=== PATIENT | female | born 1945 | race Caucasian/White ===

== ENCOUNTER 2020-06-21 12:07 | Emergency (ER) | payer BC, OTHER ==
[~2020-06-21] VITALS: Ht 170.2 cm; Wt 72.6 kg
--- NOTE | ~2020-06-21 | EMS ---
[address] [address] EMS Patient Care Report Name: JOSEFINA JERONIMO Room #: REG CHRISTIANO Yousif#: [id number] Admission: 06/21/20 Attend Phys: Discharge: Date of : 41 Report #: [id number] THIS REPORT FOR: //name// Report Transmitted: 06/21/2020 13:24 EMS Care Summary [facility] MED-ACT Incident [id number] @ 06/21/2020 11:22 Incident Location [address] [place] [address] [address] [place] [address] Patient JOSEFINA JERONIMO Female, 74 Years 1945 Patient Address [address] [place] [address] [address] [place] [address] Patient History Diabetes,Hypertension (HTN),Hyperlipidemia, Patient Allergies Penicillin allergy,Sulfa, Patient Medications Metformin, Glyburide, Gabapentin, Acyclovir, Atorvastatin, Zolpidem, Lisinopril, Tramadol, Cymbalta, Chief Complaint Neck pain, dizziness, headache Disposition Transported No Lights/[place] Dispatch Reason Sick Person Transported To [facility] Narrative [id number] arrived on scene to find pt seated in a chair, in care of Q41. Pt [address] [address] EMS Patient Care Report Name: JOSEFINA JERONIMO Room #: LAURY Yousif#: [id number] Admission: 06/21/20 Attend Phys: Discharge: Date of : 43 Report #: [id number] appeared to be in no acute distress. Pt complains of sharp 10/10 neck pain that came on suddenly a couple days ago. Pt denies recent fall or trauma to that area. Pt also complains of "a little" headache and dizziness. Pt states she has not been taking her medications lately, but would not give a reason why. Pt is a difficult historian and refuses to answer some questions posed by EMS. VS, exam, ECG, bG checked- 305. Pt ambulated to cot, secured with seatbelts--> unit. Pt refused to wear a mask while in the unit, stating "I can't breathe." Pt rested comfortably on the cot during transport with no obvious signs of distress. No further complaints and VS monitored en route. Biocom to [place] with information only. Initial Vitals @11:57P: 89,BP: 140/87,SpO2: 100, @11:55P: 91,SpO2: 100, @PTAP: 97,R: 18,BP: 219/105,Pain: 10/10,GCS: 15,Glucose: 305,SpO2: 98,Revised Trauma: 12,[place] Suspected: false @11:44P: 93,BP: 171/119,Pain: 10/10,GCS: 15,SpO2: 100,[place] Suspected: false Assessments @11:40MENTAL:Person Oriented,Time Oriented,Place Oriented,Event Oriented,SKIN:HEENT:Head/Face: No Abnormalities,LUNG SOUNDS:General: No Abnormalities,ABDOMEN:General: No Abnormalities,PELVIS//GI:No Abnormalities,EXTREMITIES:Left Arm: No Abnormalities,Right Arm: No Abnormalities,Left Leg: No Abnormalities,Right Leg: No Abnormalities,PULSE:NEURO:No Abnormalities, Impression Pain (Non-Traumatic) 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,BP: 219/105 M,PULSE: 97,RR: 18 R,SPO2: 98 Ox,ETCO2: ,B,PAIN: 10,GCS: 15, 11:19,Call Received 11:19,Psap Call 11:22,Dispatched 11:23,En Route 11:27,On Scene 11:32,At Patient 11:43,Depart Scene 11:44,BP: 171/119 M,PULSE: 93,RR: R,SPO2: 100 Ox,ETCO2: ,BG: ,PAIN: 10,GCS: [address] [address] EMS Patient Care Report Name: JOSEFINA JERONIMO Room #: REG Rea.#: [id number] Admission: 06/21/20 Attend Phys: Discharge: Date of : 43 Report #: [id number] 15, 11:55,BP: / M,PULSE: 91,RR: R,SPO2: 100 Ox,ETCO2: ,BG: ,PAIN: ,GCS: , 11:57,BP: 140/87 M,PULSE: 89,RR: R,SPO2: 100 Ox,ETCO2: ,BG: ,PAIN: ,GCS: , 11:59,At Destination 12:20,Call Closed Disclaimer v1.1 Copyright 2020 [facility] This EMS Care Summary contains data elements from the applicable legal record (which may be displayed differently). It is designed to provide pertinent information for the following purposes: continuity of care, clinical quality, and state data reporting. The complete legal record is available to ED staff and administrators of the receiving hospital in [employer]'s Patient Tracker. All data is provided "as is."
[2020-06-21 13:21] LABS: BASOPHILS 0.9 % (0.0-2.0); EOSINOPHILS 0.7 % (0.0-3.0); HEMATOCRIT 44.5 % (37.0-47.0); HEMOGLOBIN 14.7 gm/dL (12.0-15.0); LYMPHOCYTES 17.4 % (24.0-44.0); MCH 27.7 pg (26.0-34.0); MCV 83.9 fL (80.0-100.0); MONOCYTES 7.3 % (1.0-8.0); PLATELET COUNT 371 thou/uL (150-400); POLYS 73.7 % (36.0-66.0); RDW 15.3 % (10.5-14.5); WBC 14.9 thou/uL (4.0-11.0)
[2020-06-21 13:35] LABS: URINE BILIRUBIN NEGATIVE (Negative); URINE BLOOD TRACE (Negative); URINE CLARITY CLEAR; URINE COLOR YELLOW; URINE GLUCOSE-RANDOM* 3+ (Negative); URINE KETONES NEGATIVE (Negative); URINE LEUKOCYTES-REFLEX TRACE (Negative); URINE NITRITE-REFLEX NEGATIVE (Negative); URINE PROTEIN (DIPSTICK) 3+ (Negative); URINE SPECIFIC GRAVITY 1.025 (1.005-1.035); URINE UROBILINOGEN 0.2 E.U./dl (0.2-1.0)
[2020-06-21 15:17] VITALS: BP 193/103
[2020-06-21 16:04] LABS: CASTS None Seen /LPF (None Seen); SQUAMOUS >10 Many /LPF (0-3)
[2020-06-21 16:05] LABS: BACTERIA-REFLEX 1-9 Few /HPF (None Seen); CRYSTALS None Seen /LPF (None Seen); URINE RBC 0-2 Rare /HPF (0-2); URINE WBC-REFLEX 0-5 Rare /HPF (0-5)
== END 2020-06-21 15:33 | disposition home or self-care (01) ==
LOC: ER 12:07
PROVIDERS: Physician Assistant
DX: D72.829 Elevated white blood cell count, unspecified (principal); E11.9 Type 2 diabetes mellitus without complications

== ENCOUNTER 2021-06-08 16:47 | Emergency (ER) | payer BC, OTHER ==
[~2021-06-08] VITALS: Ht 170.2 cm; Wt 72.6 kg
[2021-06-08 16:53] VITALS: BP 186/80
[2021-06-08] MEDS ORDERED: ASA81BEC PO (17:07)
[2021-06-08] MEDS ORDERED: ACETAMINOPHEN650 M1 PO (17:07)
[2021-06-08] MEDS ORDERED: LIPITOR 20 MG T20 M1 PO (17:07)
[2021-06-08] MEDS ORDERED: NORVASC 2.5 MG2.5 M1 PO (17:07)
[2021-06-08] MEDS ORDERED: SANTYL OINTMENT30 G1 TOP (17:08)
[2021-06-08] MEDS ORDERED: DULOXETINE HCL60 MG PO (17:08)
[2021-06-08] MEDS ORDERED: OPTIMAL D31250 MCG PO (17:08)
[2021-06-08] MEDS ORDERED: JARDIANCE10 MG PO (17:10)
[2021-06-08] MEDS ORDERED: IRON325 PO (17:10)
[2021-06-08] MEDS ORDERED: LANTUS SUBQ (17:11)
[2021-06-08] MEDS ORDERED: NOVOLOG100 UNIT/1 SUBQ (17:11)
[2021-06-08] MEDS ORDERED: HYDROCODON-ACE1 EAC7 PO (17:11)
[2021-06-08] MEDS ORDERED: HUMALOG100 UNIT/1 SUBQ (17:12)
[2021-06-09] MEDS ORDERED: NEURONTIN 300M300 M2 PO (03:54)
[2021-06-09] MEDS ORDERED: DULOXETINE HCL30 MG PO (03:54)
[2021-06-09] MEDS ORDERED: NOVOLIN 70100 UNIT/3 SUBQ (03:55)
[2021-06-09] MEDS ORDERED: JARDIANCE10 MG PO (03:56)
[2021-06-09] MEDS ORDERED: LATANOPROST 0.2.5 ML OPHTHALMIC (03:57)
[2021-06-09] MEDS ORDERED: METHOCARBAMOL500 M2 PO (03:58)
[2021-06-09] MEDS ORDERED: LIDODERM1 EACH TOP (03:58)
[2021-06-09] MEDS ORDERED: NORCO5 PO (03:59)
[2021-06-09] MEDS ORDERED: FLUDROCORTISON0.1 MG PO (03:59)
[2021-06-09] MEDS ORDERED: MELATONIN3 M2 PO (03:59)
[2021-06-09] MEDS ORDERED: TYLENOL325 MG PO (04:00)
== END 2021-06-08 18:13 ==
LOC: ER 16:47
DX: F91.8 Other conduct disorders (principal); E11.9 Type 2 diabetes mellitus without complications; F17.210 Nicotine dependence, cigarettes, uncomplicated; Z20.822 Contact with and (suspected) exposure to COVID-19; Z79.82 Long term (current) use of aspirin; Z79.4 Long term (current) use of insulin; Z79.899 Other long term (current) drug therapy; Z88.0 Allergy status to penicillin; Z88.2 Allergy status to sulfonamides

== ENCOUNTER 2021-06-08 17:27 | Inpatient (IN) | payer OTHER, BC ==
[~2021-06-08] VITALS: Ht 167.6 cm; Wt 74.4 kg
[~2021-06-08 17:27] MED LIST: ACETAMINOPHEN650 M1 PO; ASA81BEC PO; DULOXETINE HCL60 MG PO; HUMALOG100 UNIT/1 SUBQ; HYDROCODON-ACE1 EAC7 PO; IRON325 PO; JARDIANCE10 MG PO; LANTUS SUBQ; LIPITOR 20 MG T20 M1 PO; NORVASC 2.5 MG2.5 M1 PO; NOVOLOG100 UNIT/1 SUBQ; OPTIMAL D31250 MCG PO; SANTYL OINTMENT30 G1 TOP
[2021-06-08 19:05] VITALS: BP 137/77
--- NOTE | 2021-06-08 19:08 | NUR ---
75 yo female with hx of DM, COPD, MDD, anxiety, fibromyalgia, glaucoma, HTN, HLD, sleep apnea and degenerative arthritis admitted to [facility] with AMS and FTT. Consents obtained by Dr. Smith and Cara Velez from daughter who is DPOA and is currently in [place]. Allergies to PCN and Sulfa. Alert and orientated to person and place. Unable to give date. Breath sounds clear. Reg HR auscultated. Color pink with brisk capillary refill and palpable peripheral pulses. Incontinent of yellow urine per brief. Active bowel sounds over soft, rounded abdomen. Ambulates with slow, steady gait. R heel decubitus with scant amt sangiuous drainage around ulcer, photographed, cleaned with NS and optiform drsg placed.
[2021-06-09] MEDS ORDERED: DULOXETINE HCL30 MG PO (03:54)
[2021-06-09] MEDS ORDERED: NEURONTIN 300M300 M2 PO (03:54)
[2021-06-09] MEDS ORDERED: NOVOLIN 70100 UNIT/3 SUBQ (03:55)
[2021-06-09] MEDS ORDERED: JARDIANCE10 MG PO (03:56)
[2021-06-09] MEDS ORDERED: LATANOPROST 0.2.5 ML OPHTHALMIC (03:57)
[2021-06-09] MEDS ORDERED: METHOCARBAMOL500 M2 PO (03:58)
[2021-06-09] MEDS ORDERED: LIDODERM1 EACH TOP (03:58)
[2021-06-09] MEDS ORDERED: NORCO5 PO (03:59)
[2021-06-09] MEDS ORDERED: MELATONIN3 M2 PO (03:59)
[2021-06-09] MEDS ORDERED: FLUDROCORTISON0.1 MG PO (03:59)
[2021-06-09] MEDS ORDERED: TYLENOL325 MG PO (04:00)
[2021-06-09 08:42] LABS: HEMATOCRIT 41.9 % (37.0-47.0); HEMOGLOBIN 13.5 gm/dL (12.0-15.0); MCH 27.1 pg (26.0-34.0); MCHC 32.3 g/dL (28.0-37.0); MCV 84.1 fL (80.0-100.0); RBC 4.99 mil/uL (4.20-5.00); RDW 15.2 % (10.5-14.5); WBC 14.3 thou/uL (4.0-11.0)
[2021-06-09 08:59] LABS: CREATININE 1.9 mg/dL (0.6-1.0); POTASSIUM 3.7 mmol/L (3.5-5.1)
[2021-06-09 09:04] LABS: CHOLESTEROL 358 mg/dL (<200); HDL CHOLESTEROL 62 mg/dL (>40); LDL CHOLESTEROL 240 mg/dL (<100); TC:HDL 5.8 Ratio (Not establshd); TRIGLYCERIDE 280 mg/dL (<150); VLDL 56 mg/dL (<40)
--- NOTE | 2021-06-09 10:30 | NUR ---
Nutrition: Seen due to new admission SBU. Dx self care failure, unspecified psychosis. Pt sleeping soundly at time of visit. No weight hx to assess. Nsg reports pt tolerated breakfast well this am. BG 74-465. On Carb controlled diet with hx DM, HTN, HLD. On SSI, glargine, linagliptin, vitamin D, ferrous sulfate. BMI 26 WNL. Will follow po trends for any needed interventions but place as low risk for now.
[2021-06-09 11:23] VITALS: BP 139/82
[2021-06-09 11:24] VITALS: BP 159/77
--- NOTE | 2021-06-09 16:02 | NUR ---
ASSUMED PATIENT CARE 0700. PATIENT WAS SLEEPING IN BED IN ROOM 519A, GOT UP FOR BREAKAST, SHE WAS CALM AND COOPERATIVE, ALERT AND ORIENTED X3 ASSESSMENT COMPLETEED, ACTIVE BOWEL SOUND, LUNGS CLEAR, B/P WAS HIGH THIS MORNING 174/73,100.18,96.0,99 02 YONY, IT WAS RECHECKED AFTER ONE HOUR 159/77, 97.18,98 02 YONY. SHE TOOK HER MEDICATION WHOLE. AMBULATE WITH OUT DEVICE, STEADY GAIT. PATIENT WENT BACK TO SLEEP AFTER ASSESSMENT AND REFUSED TO GET UP FOR LUNCH, SHE DENIES SI/HI. WILL CONTINUE TO MONITOR PATIENT
[2021-06-09 17:58] LABS: BASOPHILS 0.6 % (0.0-2.0); EOSINOPHILS 1.5 % (0.0-3.0); HEMATOCRIT 38.8 % (37.0-47.0); HEMOGLOBIN 12.7 gm/dL (12.0-15.0); LYMPHOCYTES 27.3 % (24.0-44.0); MCH 27.5 pg (26.0-34.0); MCHC 32.8 g/dL (28.0-37.0); MCV 83.8 fL (80.0-100.0); MONOCYTES 10.5 % (1.0-8.0); PLATELET COUNT 312 thou/uL (150-400); POLYS 60.1 % (36.0-66.0); RBC 4.62 mil/uL (4.20-5.00); RDW 15.4 % (10.5-14.5); WBC 11.6 thou/uL (4.0-11.0)
[2021-06-09 18:06] LABS: CALCIUM 8.8 mg/dL (8.5-10.1); CREATININE 1.7 mg/dL (0.6-1.0)
--- NOTE | 2021-06-09 18:22 | NUR ---
@1100 ARAM, Tequila Hoang RN attempted to contact the Pt's DPOA, Rafa, by phone. We were able to speak with Rafa however she was having a diffucult time hearing the conversation. ARAM set up a zoom meeting for 1300. [address] Navarro were able to participate in a zoom call with Rafa. Dr. Navarro explained the assessments and treatment for Pt's on this unit. Also the risk of antipsychotics. Rafa was able to give some background information on the Pt and complete the psychosocial assessment with the SW. Pt was born and raised in [place]. Only has one adult daughter Rafa. 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 Pt has surgery on her back in April 2021. Since that time Pt has had 4 falls. Pt does have a bus steward but no other in home assistance. Pt did have meals on wheel however does not like chicken so she stopped the service. Pt is unable to cook her own meals but is able to use a microwave. Pt lives on her own, has no family in the country, however has 2 close friends who do assist her. A follow up meeting for 06/15/2021 @ 1pm was scheduled. This will be via zoom. Welcome information was emailed to Rafa at [email or web address] ARAM will continue to follow
[2021-06-09 19:18] VITALS: BP 121/54
[2021-06-09 19:50] VITALS: BP 121/54
[2021-06-10 00:06] LABS: GLYCOHEMOGLOBIN (HGB A1C) 10.7 % (4.8-5.6)
--- NOTE | 2021-06-10 03:14 | NUR ---
PATIENT CARE WAS RESUMED AT 1900. SHE WAS IN THE DINING AREA WITH IV NORMAL SALINE INFUSING. SHE IS ALERT AND ORIENTED. ABLE TO VERBALIZE HER NEEDS. SHE IS CONTINET OF BOWEL AND BLADDER. DENIES PAINS /SI/AVH/HI. SHE TOOK HER MEDS WHOLE. BOWEL SOUND ARE CLEAR ABD IS SOFT NONE TENDER.SHE HAS A YELLOW TOP AND NONE SKID SOCK ON. BED IS LOW, LOCKED . CONTINUE CARE AND MONITOR Q12 MINUTES PER PROTOCOL.
[2021-06-10 06:48] LABS: HEMATOCRIT 37.9 % (37.0-47.0); HEMOGLOBIN 12.1 gm/dL (12.0-15.0); MCH 27.2 pg (26.0-34.0); MCHC 31.9 g/dL (28.0-37.0); MCV 85.3 fL (80.0-100.0); RBC 4.45 mil/uL (4.20-5.00); RDW 15.5 % (10.5-14.5); WBC 12.2 thou/uL (4.0-11.0)
[2021-06-10 07:11] LABS: CREATININE 1.8 mg/dL (0.6-1.0); POTASSIUM 3.4 mmol/L (3.5-5.1)
[2021-06-10 09:43] VITALS: BP 120/54
--- NOTE | 2021-06-10 12:15 | NUR ---
PATIENT CARE ASSUMED BY 0700, SHE WAS IN BED SLEEPING, GOT UP TO THE DAY ROOM FOR BREAKAST, ALERT AND ORIENTED X4, CALM AND VERY SLEEPY DURING ASSESSMENT, LUNGS CLEAR, ACTIVE BOWEL SOUND, VSS, SHE SLEPT MOST OF THE DAY IN THE DAY ROOM ON THE TAYLA CHAIR, SHE IS CONTINENT OF BOWEL AND BLADDER, AMBULATE WITH WALKER WITH UNSTAEDY GAIT. PATIENT DENIES SI/HI/AVH, WILL CONTINUE TO MONITOR
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
[2021-06-10 20:32] VITALS: BP 141/58
--- NOTE | 2021-06-11 03:24 | NUR ---
06/10/21 - pt is alert/pleasant with some confusion, hat placed in bathroom but unable to use urine because it got contaminated with stool. Pt uses walker when she remembers it. She is unsteady on her feet but will allow you to assist her when needed. This nurse assisted her with combing her hair. She got up without assistance at approx 215 am but went back to bed. Denies SI/HI/AH/VH. will continue to monitor.
[2021-06-11 09:30] LABS: URINE BILIRUBIN NEGATIVE (Negative); URINE BLOOD NEGATIVE (Negative); URINE CLARITY CLEAR; URINE COLOR YELLOW; URINE GLUCOSE-RANDOM* NEGATIVE (Negative); URINE KETONES NEGATIVE (Negative); URINE NITRITE-REFLEX NEGATIVE (Negative); URINE PROTEIN (DIPSTICK) 1+ (Negative); URINE SPECIFIC GRAVITY <= 1.005 (1.005-1.035); URINE UROBILINOGEN 0.2 E.U./dl (0.2-1.0)
[2021-06-11 09:31] LABS: URINE LEUKOCYTES-REFLEX 1+ (Negative)
[2021-06-11 09:46] LABS: CASTS None Seen /LPF (None Seen); SQUAMOUS 4-10 Moderate /LPF (0-3)
[2021-06-11 09:47] LABS: BACTERIA-REFLEX 1-9 Few /HPF (None Seen); CRYSTALS None Seen /LPF (None Seen); URINE RBC None Seen /HPF (NONE SEEN); URINE WBC-REFLEX 0-5 Rare /HPF (0-5)
[2021-06-11 10:21] VITALS: BP 152/73
--- NOTE | 2021-06-11 14:42 | NUR ---
ASSUMED CARE OF PATIENT 06/11/21 AT 0700, PATIENT WAS STILL IN BED SLEEPING, CAME OUT FOR BREAKFAST, CALM AND COPERATIVE, ALERT AND ORIENTED X3, TOOK MEDICATION WHOLE, ASSESSMENT COMPLETED, ACTIVE BOWEL SOUND, LUNGS CLEAR, SHE ATTENDED GROUP BUT COULD NOT STAY AWAKE AND WAS SENT BACK TO HER ROOM TO SLEEP, DAUGHTER CALLED FOR UPDATE. BLOOD PRESSURE 152/73,66,16,96.8,98. TYLENOL PRN WAS GIVEN FOR BACK PAIN, PATIENT DENIES SI/HI/AVH, WILL CONTINUE TO MONITOR HER
[2021-06-11 18:01] VITALS: BP 179/72
--- NOTE | 2021-06-11 18:46 | NUR ---
17:50 I HARD A SCREAM COMING FROM A ROOM I WAS WALKING ANOTHER PATIENT TO THE BATHROOM, OTHER STAFF WENT TO THE ROOM AND FOUND THE PATIENT ON THE BATHROOM FLOOR. PATIENT STATED SHE FELL TRYING TO USE THE BATHROOM VITAL/SIGNS 179/72,100,18,96.2 AND 02 98%. BRIAN POWELL SHANNON WAS NOTIFIED,CT SCAN WAS DONE, CARE PLAN WAS UPDATED
[2021-06-11 19:20] VITALS: BP 132/42
[2021-06-11 20:10] VITALS: BP 132/42
--- NOTE | 2021-06-12 04:08 | NUR ---
PATIENT CARE WAS RESUMED AT 1900. SHE IS ALERT AND WAS RESTING IN HER BED. SHE AMBULATES WITH WALKER AND AND SHE IS CONTINET OF BOWEL AND BLADDER. ABLE TO VERBALIZE HER NEEDS. LUNGS ARE CLEAR BS ACTIVE X4 QUADS. SHE TOOK HER MEDS WHOLE AND SHE DENIES PAINS/SI/AVH/HI. SHE CONTINUES IS ON FALL PROTOCOL. BED IS LOW,ALARMED AND LOCKED.NURSE PROVIDED HER WITH SOME SNACKS PER HER REQUEST. SHE IS A MODERATE ASSIST WITH TRANSFER. Q 12MINUTES CHECK ONGOING CONTINUE CARE.
[2021-06-12 09:45] VITALS: BP 159/75
--- NOTE | 2021-06-12 12:27 | NUR ---
Assumed pt care at 0700. Pt was in room awake. Alert and oriented to person and place. Calm and cooperative with care. Denies si/hi, c/o pain. Tylenol administered as ordered. No sign of acute distress noted upon assessments. Took meds whole, no difficulty noted. Ambulates with a walker. At this time pt is in her room resting. Will continue to monitor.
--- NOTE | 2021-06-12 17:25 | NUR ---
ARAM sent a request to Olga Francis for a medicaid screening.
[2021-06-12 19:50] VITALS: BP 137/61
[2021-06-12 20:09] VITALS: BP 137/61
[2021-06-12 22:06] LABS: SYPHILIS AB Non Reactive (Non Reactive)
--- NOTE | 2021-06-13 05:34 | NUR ---
PATIENT CARE WAS RESUMED AT 1900. SHE IS ALERT AND ORIENTED WITH SOME CONFUSSION AND FORGETFULNESS.LUNGS ARE CLEAR BS ACTIVE X4 QUADS. SHE IS CONTINIET OF BOWEL AND BLADDER. AMBULATES WITH WHEEL CHAIR. DENIES PAINS/SI/AVH/HI. SHE TOOK HER MEDS WHOLE. BED IS LOW, LOCKED AND ALARMED. YELLOW TOP AND NONE SKID SOCKS ON. [id number] CHECK ONGOING.CONTINUE CARE AND MONITOR.
[2021-06-13 06:05] LABS: HEMATOCRIT 37.4 % (37.0-47.0); HEMOGLOBIN 12.1 gm/dL (12.0-15.0); MCH 27.5 pg (26.0-34.0); MCHC 32.4 g/dL (28.0-37.0); MCV 84.9 fL (80.0-100.0); RBC 4.4 mil/uL (4.20-5.00); RDW 15.2 % (10.5-14.5); WBC 9.1 thou/uL (4.0-11.0)
[2021-06-13 06:20] LABS: CALCIUM 8.1 mg/dL (8.5-10.1); CREATININE 1.6 mg/dL (0.6-1.0); POTASSIUM 4.2 mmol/L (3.5-5.1)
[2021-06-13 09:26] VITALS: BP 166/76
--- NOTE | 2021-06-13 10:10 | NUR ---
Followup: remains on SBH. Eating 90-100% meals, wt up 4 lb, BMI 26.5. Carb controlled diet, BG 93-176. Remains low nutrition risk
--- NOTE | 2021-06-13 15:44 | NUR ---
Assumed pt care at 0700. pt was in her room sleeping. Alert and oriented to person and place. Assessments completed,vss. Denies si/hi, scheduled medication administered as ordered. Took meds whole, no difficulty noted. Ambulates with a WALKER. pt heel wound was assessed. Dr Vigil was notified. cALM AND COOPERATIVE WITH CARE. Pt daughter called for update over the phone. Will continue to monitor pt.
[2021-06-13 20:00] VITALS: BP 146/116
[2021-06-13 21:00] VITALS: BP 146/116
[2021-06-13 21:20] VITALS: BP 146/116
[2021-06-14 03:52] VITALS: BP 146/116
--- NOTE | 2021-06-14 04:47 | NUR ---
PATIENT CARE WAS RESUMED AT 1900. SHE IS ALERT AD ORIENTED X3. SHE AMBULTES WITH WALKER. DENIES PAINS/SI/AVH/HI. SHE TOOK HER PILLS WHOLE. YELLOW TOP AND SOCK ON. BED IS LOW, LOCKED AND ALARMED. NO BEHAVIUR NOTED THIS SHIFT, BED IS LOW, LOCKED AND ALARMED. SHE SLEPT VERY GOOD THIS SHIFT.
[2021-06-14 10:30] VITALS: BP 145/50
[2021-06-14 19:28] VITALS: BP 159/76
--- NOTE | 2021-06-15 07:31 | NUR ---
PATIENT HAS BEEN IN ROOM ALL NIGHT. WHEN ASKED SHE DENIES SI/HI/AVH. SHE DID STATE THAT THE NEUROCOGNITIVE TESTS SHE HAD DONE YESTERDAY DID NOT SHOW GOOD RESULTS AND THIS HAS MADE HER SAD. SHE FEELS AT A LOSS ON WHAT IS GOING TO HAPPEN NEXT WITH HER CARE. SHE WAS CALM BUT COOPERATIVE. A/0X3-4. SHE WAS UP WITH WALKER AND STANDBY ASSIST X 1 TO THE RESTROOM. SHE TOOK HER MEDS WHOLE WITH WATER. SHE TAKES TYLENOL SCHEDULED FOR CHRONIC PAIN IN RIGHT HIP WHERE PLATE IS IN PLACE FROM A PAST HIP FRACTURE. PATIENT SLEPT MOST OF NIGHT. BED IN LOW POSITION AND BED ALARM IS ON. ROUTINE ROUNDS TO ASSESS SAFETY AND STATUS OF PATIENT.
--- NOTE | 2021-06-15 10:49 | NUR ---
RT Progress Note- Yaneth has been a limited participant in recreation therapy groups and milieu. Yaneth is found in her room during unscheduled programming, and most often declines group attendance. She is sharp in tone and directly states that she is, "not like those people" when refusing to participate. She has not displayed any violence. TOOL KEEPER will continue to encourage patient participation in the milieu and recreation therapy groups.
[2021-06-15 11:03] VITALS: BP 149/64
--- NOTE | 2021-06-15 14:57 | NUR ---
Alert and orientated. States she wants to stay in bed but then ambulated to dining room with slow, steady gait to dining room for breakfast. Did not mention pain until scheduled tylenol given. Then refused to go to group and stated to PT that she did not want PT d/t hip pain. Discussed with Dr. Smith, hip xray done per order. Partial relief with scheduled tylenol. Breath sounds clear. Reg HR auscultated. Color pink with brisk capillary refill and palpable peripheral pulses. Active bowel sounds over soft, rounded abdomen. States she had BM yesterday. Currently sleeping in room. States she was happy to speak with daughter over phone.
--- NOTE | 2021-06-15 17:10 | NUR ---
ARAM and Dr. Navarro participated in a family meeting with the Pt and DPOA, Helena. Nueropsy evalation was discussed and diagnosis. Dr. Navarro gave recommendation for 24 hr superviosn/LTC. ARAM informed Helena that [facility] was trying to contact her concerning the medicaid application. Helena confirmed she had recieved an email from Rima Francis concerning the matter. The Pt and Helena expressed concern about the diagnosis. The Pt expressed understanding of being at the hospital until a placement can be secured. SW will continue to follow
[2021-06-15 20:04] VITALS: BP 145/56
--- NOTE | 2021-06-16 04:23 | NUR ---
PATIENT CARE ASSUMED AT APPROX 1900. PATIENT A&OX3, REPORTED 7/10 HIP PAIN. GIVEN SCHEDULED TYLENOL PER ORDERS. PATIENT C/O "THE OTHER PAITIENTS ARE CUCKOO" AND "ALL THE NORMAL PEOPLE DISSAPPEARED AND EVERYONE THAT IS HERE NOW IS CRAZY. I HAVE SOMETHING TO FEAR FROM EVERY OTHER PATIENT HERE". AT THE TIME THE PATIENT STATED THIS, THERE WERE 2 OTHER PATIENTS YELLING AND SCREAMING VERY LOUDLY, WHICH FRIGHTENED HER. PATIENT CLEARLY UNCOMFORTABLE AROUND HER PEERS. WHEN A NEW ADMIT CAME WHO WAS ALSO VERY DISRUPTIVE, THE PATIENT WAS MOVED TO ANOTHER ROOM SHE APPEARED EXASPERATED AND UNABLE TO SLEEP WITH THE COMMOTION. PATIENT HAS REMAINED IN BED RESTING QUIETLY SINCE THE ROOM CHANGE.
[2021-06-16 09:25] VITALS: BP 173/94
--- NOTE | 2021-06-16 16:16 | NUR ---
Alert and orientated X 4, denies SI/HI. Frustrated with being on behavioral unit. Does not mention hip pain until offered scheduled tylenol. States it is better but rates it a 5. Ambulates with walker with regular, steady gait. Breath sounds clear. Reg HR auscultated. Color pink with brisk capillary refill and palpable periphearal pulses. Ulcer on R heel healing, cleaned with NS and painted with betadine. Independent with voiding. States last BM was 2 days ago. Currently sleeping in room.
--- NOTE | 2021-06-16 17:09 | NUR ---
ARAM recieved and email from Helena stating " I have spoke with my mom and she refused to go into a retirement. I need to speak with Dr. Smith urgently" ARAM did respond back to the email and provided Dr. Jarrett's cell phone number in that email. ARAM and Dr. jarrett were able to have a phone conversation with Edwin concerning the matter. Helena was concerned about being the decision maker stating " I don't want to have to make the decision about my mother going to a retirement". Dr. Jarrett informed Helena if she was unwilling to exercise her decision making rodriguez through the power of district attorney a guardianship would need to be pursued. Also explained the pros and cons of an appointed guardian. The recommedation for retirement placement was discussed and it was strongly encouraged that this route be pursued due to the high risk of Pt being unsafe if returned home without the proper supports. Helena confirmed the Pt did not have any friends or family that could provide 24hr supervision in the home. Helena stated she would not be able to make it to the [place] for another 2 months if COVID restrictions allow. Helena was able to verbilize an understanding for a need for a retirement placement at this time. Helena had no other questions or concerns ARAM will continue to follow.
--- NOTE | 2021-06-16 17:30 | NUR ---
ARAM and Dr. Weston were able to speak with Kristina Cardenas, [facility] supervisor case loading. The Pt was also in the office for this call. Kristina inquired about Pt's diagnosis and the plan for discharge. Dr. isaacs educated about the diagnosis and treatment plan. ARAM was able to answer questions concerning placement and medicaid. Kristina stated they would be unable to assist with any cost associated with a placement. However they could assist with packing up the Pt's home and storage. Kristina had to end the phone call due to another meeting. After the call ARAM and Dr. Weston talked to the Pt about her behaviors with staff. Pt showed an understanding that the behavior was not okay and not tolerated. ARAM will continue to follow.
[2021-06-16 19:38] VITALS: BP 150/72
--- NOTE | 2021-06-16 22:26 | NUR ---
RESUMED CARE AT 1900. PATIENT LYING IN BED. COMPLIANT WITH MED PASS. HS ACCUCHECK 199, ADMIN 3 UNITS OF SS INSULIN. LATER WHEN PATIENT GOT UP TO GO TO THE BATHROOM, NOTED THE WOUND ON RIGHT HEEL WAS BLEEDING. CLEANED WITH NS, APPLIED BETADINE, DRESSED WITH NONADHERENT DRESSING AND WRAPPED LIGHTLY WITH GAUZE. DENIES ANY PAIN IN HEEL. C/O RIGHT HIP PAIN 4/10, GIVEN SCHEDULED TYLENOL. PATIENT A&OX3, PLEASANT AND EXPRESSES THANKS FOR ASSISTING HER. Q12 MINUTE SAFETY CHECKS.
[2021-06-17 09:12] VITALS: BP 169/79
--- NOTE | 2021-06-17 14:02 | NUR ---
Alert and orientated to person and place but not to time. Upset d/t having to be watched when she toilets. Agreeable to putting on yellow shirt and socks, blue pants for fall precautions. Denies SI/HI. 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 Calm and cooperative. Breath sounds clear. Reg HR auscultated. Color pink with brisk capillary refill and palpable peripheral pulses with minimal edema in lower extremitites. Pain 5/10 per R hip, improved to 4/5 with lidocaine patch and tylenol. Ambulates with regular gait with walker. Independent with voiding. Active bowel sounds over soft, rounded abdomen, reports BM 3 days ago, refuses laxative this AM stating she wants to wait one more day. Ulcer on R heel with small amt red drainage, cleaned with NS and betadine applied. Wound covered with foam dsg d/t drainage.
[2021-06-17 16:30] VITALS: BP 126/67
[2021-06-17 19:50] VITALS: BP 109/55
--- NOTE | 2021-06-17 22:06 | NUR ---
RESUMED PATIENT CARE THIS EVENING. PATIENT LYING IN BED SINCE START OF SHIFT. WEARING YELLOW SHIRT, BLUE PANTS, AND YELLOW NONSLIP SOCKS. BED ALARM ON. A&OX 3. C/O RIGHT HIP PAIN 5/10. GIVEN SCHEDULED TYLENOL. PATIENT STATES SHE IS SAD, BECAUSE SHE HASN'T SPOKEN TO HER DAUGHTER IN 3 DAYS. PATIENT FEELS SHE DOES NOT HAVE ANY CONTROL OF HER LIFE. DEPRESSED MOOD, DOWNCAST EYES. PATIENT COMPLIANT WITH MEDICATIONS. HS ACCUCHECK 227, GIVEN 4 UNITS OF SLIDING SCALE. PATIENT CONTINUES ON FALL PRECAUTIONS AND Q12 MINUTE SAFETY CHECKS.
[2021-06-18 09:29] VITALS: BP 188/96
--- NOTE | 2021-06-18 12:12 | NUR ---
LABILE MOOD NOTED THIS SHIFT. ON INITIAL ASSESSMENT THIS AM SITTING IN DAYROOM WITH FEMALE PEERDEMANDING A NEW BREAKFAST BE ORDERED BECAUSE SHE DID NOT LIKE THE EGGS AND MUFFIN/FRESH FRUIT PROVIDED-ANGRY FACIALEXPRESSION,RAISED VOICE-"YOU HAD BETTER GET ME WHAT I ORDERED OR SOMEONE IS GOING TO HEAR ABOUT IT"REFUSED TO ATTEND AM RT GROUP WAS IN ROOM ON PHONE WITH DAUGHTER AT START OF ACTIVITY. JOSE DAVID INFORMED OF GROUP TIMES BY NURSING STAFF BUT BOTH PT/SAJI INSIST ON CONTINUING PHONE CONVERSATION D/T DAUGHTER LIVING IN [facility] AND CAN ONLY CALL Q 3-4 DAYS. AFTERSPEAKING WITH DAUGHTER ON PHONE WAS LOUDLY TEARFYL IN ROOM STATING"YOUR DOCTOR HERE HAS RUINED MY RELATIONSHIP WITH MY DAUGHTER AND I NEED TO TALK WITH HIM RIGHT NOW" DID TAKE MEDICATIONS AND INSULIN WITHOUT RESISTANCE-ALTHOUGH SHE STATES MEDICINES "ARE NOT WORKING-I FEEL WORSE THAN EVER"GAIT SLOW AND STEADY WITH USE OF ROLLER WALKER-ENCOURAGED MULTIPLE TIMES TO ALLOW STAFF TO ASSIST WITH TOILETING AND AMBULATING HOWEVER CONTINUES TO GET UP ON OWN STATING SHE DOESN'T WANT TO WAIT UNTIL NURSE IS DONE FEEDING A PT IN DAYROOM. DENIES C/O PAIN. VS STABLE. BS ACTIVE X4. AFEBRILOE-APPETITE FAIR.REMAINS ON FALLS PRECAUTIONS D/T RECENT FALL
--- NOTE | 2021-06-18 17:00 | NUR ---
SW witnessed pt. aggressively pushing a pt's legs down. The pt. had been reclined in the chair. The pt. was taken out of the day room.
--- NOTE | 2021-06-18 17:09 | NUR ---
ARGUMENTATIVE AND OPPOSITIONAL WITH STAFF. REFUSES TO ATTEND ACTIVITIES-MAKING COMMENTS LOUDLY IN DAYROOM TO FEMALE PEER THAT STAFF ARE "STUPID" "CAN'T GET ANYTHING RIGHT" AND TELLING PEERS AND STAFF COMING ONTO UNIT FROM OTHER DEPARTMENTS THAT STAFF WERE "NOT GIVING ME ANY FOOD OR HELP ALL DAY"-INACTUALITY REFUSED FOOD BROUGHT ON LUNCH TRAY-SPECIAL MENU ITEM PREPARED IN DIETERY AND BROUGHT TO FLOOR AND SHE REFUSES THIS CALLING IT "GARBAGE"INSISTED ON HAVING A SHOWER TODAY DESPITE FACT SHOWER DAYS ARE SCHEDULED AND STAFF WOULD HAVE TO POSTPONE ANOTHER PATIENTS SHOWER WHO HAD NOT HAD ONE RECENTLY SHE HAS TO WHICH SHE STATES "I DON'T CARE" AT [address] BY KIRSTIN BEGAN TO YELL LOUDLY AT THIS NURSE THAT A HAD PUT ANOTHER PT IN HER CHAIR-WHEN EXPLAINED WE DON;T HAVE ASSIGNED SEATS AT MEALTIME WALKED OVER TO FEMALE PT SITTING IN CHAIR WHO WAS OFFERING TO MOVE AND SHOUTED AT HER LOUDLY "SHUT UP-" APPROX 5 MINUTES LATER GOT UP FROM DINING ROOM TABLE WALKED OVER TO PT SITTING IN "HER CHAIR" PUSHED DOWN FIRMLY ON LEG REST CAUSING RECLINER TO SNAP INTO UPRIGHT SITTING POSITION ALMOST KNOCKING FEMALE PEER OUT OF CHAIR TO GROUND. THIS INCIDENT WITNESSED BY RT STAFF WHO IMMEDIATLY ESCORTED PT TO ROOM -DR BYRD ON UNIT -SAW PT AT APPROX 1730-ORDER RECEIVED FOR ZYDIS 5MGPO NOW.
[2021-06-18 19:36] VITALS: BP 166/77
[2021-06-18 20:40] VITALS: BP 166/77
--- NOTE | 2021-06-19 00:46 | NUR ---
PATIENT HAS BEEN IN HER ROOM MOST OF EVENING. SHE DID VISIT WITH SOME OTHER FEMALE PATIENTS AT THE BEGINNING OF THE SHIFT AND THEN WAS ASSISTED TO HER BEDROOM TO USE THE RESTROOM. PATIENT HAS BEEN IRRITABLE WHEN SHE WAS AWAKENED FOR HS MEDS. SHE REFUSED HER PILLS BUT DID ALLOW EYEDROPS AND INSULINS TO BE GIVEN. HER HS GLUCOSE WAS 316 BUT SHE DID REFUSE INSULIN AT SUPPER THIS EVENING WHEN GLUCOSE WAS IN THE 200'S. PATIENT LATER DECLINED HER GABAPENTIN AND WAS VERY IRRITABLE. PATIENT CONTINUES TO BE A FALL RISK. SHE DENIES SI/HI/AVH. SHE DENIES PAIN. BED IN LOW POSITION AND BED ALARM IS ON. PT AMBULATES FROM BED TO BATHROOM WITH WALKER AND ASSIST X 1. SHE IS A/0X2-3 AND CONFUSED AT TIMES. ROUTINE ROUNDS TO ASSESS SAFETY AND STATUS OF PATIENT.
[2021-06-19 09:48] VITALS: BP 172/70
--- NOTE | 2021-06-19 14:24 | NUR ---
Patient care resumed at 0700, patient still in bed sleeping, she is alert and oriented x3, calm, pleasant during assessment, got her up for breakfast, VVS, blood sugar 189, 4 units of insulin given, 229 for lunch, 4 units given, active bowel sound, lungs clear, patient calm and cooperative but always sleeping in room, she was ordered room locked out for groups and meals, she attends groups and paticipated, she denies si/hi
--- NOTE | 2021-06-19 14:57 | NUR ---
Referrals sent to the following: [facility]
[2021-06-19 20:40] VITALS: BP 110/50
--- NOTE | 2021-06-20 02:54 | NUR ---
PATIENT STAYED IN ROOM THIS EVENING. SHE WAS VERY IRRITABLE AND HATEFUL AND REFUSED HER TYLENOL AND GABAPENTIN INITIALLY BUT WAS ABLE TO GIVE IT TO HER LATER. HER BLOOD SUGAR WAS 231 AND LISPRO 4 U WERE GIVEN SQ. PT ALSO HAD LANTUS 30 U SCHEDULED. PATIENT DID HAVE A BM TONIGHT. SHE DID HAVE HS SNACK LATER IN EVENING AND APOLOGIZED FOR BEING IRRITABLE. SHE IS UP WITH WALKER. SHE IS A HIGH FALL RISK. DENIES SI/HI/AVH. A/0X 2-3. PATIENT IS ANGRY ABOUT BEING HERE AND WANTING TO GO HOME. PATIENT IS RESTING AT THIS TIME. BED IN LOW POSITION AND BED ALARM IS ON. ROUTINE ROUNDS TO ASSESS SAFETY AND STATUS OF PATIENT.
--- NOTE | 2021-06-20 08:29 | NUR ---
Nutrition follow up: Remains on [facility] unit. Intakes >75% avg across all meals. No recent weight. Vitamin D supplementation in place. A1c 10.7 on admit, BG range 134-316. On [facility] diet with DM meds in place. Remains low nutrition risk.
[2021-06-20 09:55] VITALS: BP 150/59
--- NOTE | 2021-06-20 12:12 | NUR ---
PATIENT CARE RESUMED AT 0700, SHE WAS SITTING IN DAY ROOM CALM AND COOPERATIVE, ALERT AND ORIENTED X3, SHE ATE BREAKFAST, VSS, LUNGS CLEAR, ACTIVE BOWEL SOUND 6 UNITS OF INSULIN WAS GIVEN FOR LUNCH, WOUND CARE DID A DRESSING CHANGE ON HER RIGHT HEEL AND RECOMMENDED DAILY AND PRN DRESSING. SHE IS A FALL RISK AND AMBULATE WITH A WALKER. PATIENT IS ON ROOM LOCK OUT FOR GROUPS AND MEALS. SHE DENIES HI/SI/AVH
[2021-06-20 19:44] VITALS: BP 137/47
[2021-06-20 20:00] VITALS: BP 137/47
--- NOTE | 2021-06-21 04:44 | NUR ---
PATIENT CARE WAS RESUMED AT 1900. SHE IS ALERT AND ORIENTED.SHE WAS IN HER ROOM RESTING IN BED. ABLE TO VERBALISE NEED. SHE DENIES ANY DISCOMFORT. LUNGS ARE CLEAR BS ACTIVE X4 QUAD. SHE IS CONTINENT OF BOWEL AND BLADDER. WHE TOO HER MED WHOLE AND SHE IS A HIGH FALL RISK. SHE AMBULATES WITH WALKER. BED IS LOW, LOCKED,AND ALARMED. SHE DENIES ANY CONCERN.Q 12MINUTES CHECK ONGOING. CONTINUE CARE AND MONITOR
[2021-06-21 08:51] VITALS: BP 158/73
--- NOTE | 2021-06-21 10:55 | NUR ---
PATIENT HAS BEEN UP, AND OUT ON THE UNIT, AMBULATE WITH SLOW UNSTEADY GAIT WITH ASSIST OF ROLLER WALKER. PATIENT TOOK ALL MEDICATION WHOLE WITHOUT DIFFICULTY, SHE IS EATING MEALS, AND DRINKING FLUID WELL. PATIENT DENIES SUICIDAL/HOMICIDAL IDEATION, SHE DENIES DEPRESSION, RATES ANXIETY 3/10, RATES RIGHT HIP PAIN 4/10, GETS SCHEDULE MEDICATION FOR PAIN. PATIENT CHOOSE NOT TO LET THIS RN APPLY LIDODERM PATCH TO HIP, "I DON'T NEED IT". AFFECT IS EUTHYMIC, MOOD CALM. NO AGITATION OR IRRITABLE BEHAVIOR NOTED AT THIS TIME. PATIENT IS ON ROOM LOCK OUT, SHE IS CURRNETLY SITTING IN DAYROOM. PATIENT PARITICIPATES IN GROUP THERAPY. PATIENT HAD LARGE FROMED BOWEL MOVEMENT THIS MORNING. NO SIGN OF ACUTE DISTRESS NOTED AT THIS TIME, WILL MONITOR FOR SAFETY.
[2021-06-21 19:20] VITALS: BP 156/68
--- NOTE | 2021-06-21 22:02 | NUR ---
PATIENT IS AAOX3 SITTING IN CHAIR IN THE MAIN AREA. PT STATES THAT SHE HAS BEEN HERE FOR 2 WEEKS AND IS READY TO GO HOME TO HER DAUGHTER. SHE STATES THAT SHE DOES NOT BELONG HERE SHE IS INTELLIGENT AND NOT LIKE THE OTHER PATIENTS HERE. SHE IS CALM AND COOPERATIVE. COMPLIANT WITH HER MEDICATIONS. DRESSING TO LEFT FOOT WOUND IS CDI. DENIES ANY PAIN AT THIS TIME. SHE REQUESTS TO KEEP HER DOOR CLOSED WHILE SLEEPING DUE TO HER FEAR OF OTHER PATIENTS ROAMING THE SEGOVIA. VITAL SIGNS STABLE.
[2021-06-22 07:59] VITALS: BP 156/68
--- NOTE | 2021-06-22 09:06 | NUR ---
0906 ASSUMED CARE OF PT FROM OVERNIGHT NURSE. PT SITTING IN DINING ROOM DURING ASSESSMENT. PT GET BLOOD SUGAR TAKEN ACHS. PT LUNGS CLEAR. PT ABDOMEN SOFT, BOWEL SOUND PRESENT. PT HAS ANKLE WOUND W DAILY DRESSING CHANGE. PT ALERT TIMES 3. PT MED COMPLIANT. PT DENIES PAIN AT TIME OF ASSESSMENT. PT DENIES SI/HI/AH/VH. WILL CONT TO MONITOR PT FOR BEHAVIORS AND SAFETY.
[2021-06-22 09:32] VITALS: BP 171/64
--- NOTE | 2021-06-22 13:42 | NUR ---
RT Progress Note- Yaneth has been present in recreation therapy groups this review period as she has been on a room lockout during group time. Yaneth continues to challenge this despite encouragement from psychiatrist. She is quick to become irritable if she does not like what is being discussed. WEB APPLICATION DEVELOPER has followed up with pt 1;1 who continues to state, "these people here are cuckoo" or "I am already depressed, I don't want to talk about it all the time" and is not open to discussing alternative leisure on unit. WEB APPLICATION DEVELOPER will continue to enforce room lockout during groups and encourage pt to be open to disucssions.
--- NOTE | 2021-06-22 19:04 | NUR ---
ARAM spoke with Katina, admissions at [facility]. Katina requested updated notes on the Pt before giving any answer for admission. ARAM did fax the requested information. ARAM has not yet heard back from Katina on the matter. ARAM will continue to follow.
[2021-06-22 19:33] VITALS: BP 123/49
--- NOTE | 2021-06-23 02:06 | NUR ---
PATIENT WITHDRAWN AND ISOLATING IN HER ROOM. STATES THAT SHE WANTS TO STAY IN HER ROOM. REQUESTS TO KEEP THE DOOR CLOSED. PATIENT STATED THAT SHE FEELS FINE BUT DID NOT WANT TO BE AROUND THE OTHER PATIENTS. SHE DENIES SI/HI. VSS. SHE IS COMPLIANT WITH MEDICATION. DENIES OTHER PAIN AND NEEDS. WILL CONTINUE TO MONITOR PATIENT FOR ANY CHANGE IN STATUS.
[2021-06-23 09:21] VITALS: BP 152/86
--- NOTE | 2021-06-23 14:06 | NUR ---
Alert and orientated X4. States stomach hurts 6/10, aching and burning. Also had R hip pain 3/10. Refuses medication for stomach and when ate breakfast states it is gone. Scheduled Tylenol given for hip pain and lidocaine patch applied. Denies SI/HI. Breath sounds clear. Reg HR auscultated. Color pink with brisk capillary refill and palpable peripheral pulses. Independent with voiding. States last BM was 3 days ago but refuses laxative. Active bowel sounds over soft, rounded abdomen. Ambulates with walker with slow, steady gait. Circular healing ulcer to R heel, cleaned with NS and betadine applied. Resistant to attending groups, isolates in room after group. Ate minimal amts for lunch, ordered additional fruit per pt request.
--- NOTE | 2021-06-23 17:38 | NUR ---
1030 ARAM spoke with Carole Gore, health administrator at [facility]. ARAM told they can accept the Pt. Carole needed to speak with Jose Eduardo concerning admission. Aram informed Carole of the time diffrence and the best way to contact would be though email. ARAM offered to contact Jose Eduardo and provide Carole's information. @[phone] ARAM emailed Jose Eduardo concerning the matter. ARAM also asked Dr. Navarro to call Jose Eduardo. Dr. Navarro came to the ARAM office where Jose Eduardo was called from Dr. Navarro's cell phone. Jose Eduardo was informed she needed to contact Carole at [facility] concernine the matter. Jose Eduardo was again given Carole's contact information. @[phone] ARAM contacted Carole again concerning the matter. Carole stated she had recieved a call or message from Jose Eduardo. @[phone] ARAM sent another email to Jose Eduardo and cc'ed Carole on the email requesting Jose Eduardo make contact concerning admission. ARAM will continue to follow
[2021-06-23 19:39] VITALS: BP 146/68
--- NOTE | 2021-06-24 04:40 | NUR ---
PATIENT AAOX4 RESTING IN THE ACTIVITY ROOM. SHE IS MORE BRIGHT TONIGHT THAN THE PREVIOUS NIGHT. SHE HAS HER SNACK AND TAKES HER MEDICATIONS WHILE IN THE COMMON AREA. SHE DENIES PAIN AT THIS TIME. WOUND IN CLEAN AND CONOR. VSS. NO DISTRESS NOTED. BLOOD SUGAR THIS EVENING WAS 289. PATIENT IS CALM AND COOPERATIVE. WILL CONTINUE TO MONITOR FOR CHANGE IN PATIENT STATUS.
[2021-06-24 09:34] VITALS: BP 152/71
--- NOTE | 2021-06-24 11:38 | NUR ---
DYSPHORIC MOOD THIS AM. ABRUPT VERBAL RESPONSES -SOME SOCIAL INTERACTION WITH FEMALE PEER -COMPLAINTIVE RE UNIT RULES AND FOOD, STAFF,SCHEDULE ETC.. DID TAKE AM MEDICATIONS WITHOUT RESITANCE. GOOD APPETITE-EATING 100 PERCENT OF MEAL AND OFTEN TIMES ASKS FOR MORE. DESCRIBES MOOD "BAD-REAL BAD" BUT UNABLE TO IDENTIFY ANY SPECIFIC DEPRESSIVE SYMPTOMS OR RATE DEPRESSION LEVEL ON 1-10 SCALE. WHEN ASKED TURNS AWAY ABRUPTLY STATING "I DON'T KNOW THATS STUPID" DENIES SI/SH. ORIENTED TO PERSON/PLACE -NO TO DATE.
[2021-06-24 20:00] VITALS: BP 181/74
[2021-06-24 20:14] VITALS: BP 181/74
--- NOTE | 2021-06-25 00:10 | NUR ---
PATIENT CARE WAS RESUMED AT 1900. SHE IS ALERT AND ORIENTED. SHE AMBULATES WITH WALKER. SHE DENIES ANY DISCOMFORT /S/ AVH/ HI. SHE IS CONTINENT OF BOWEL AND BLADDER. SHE IS CALM. SHE TOOK HER MED WHOLE AMBULATES WITH WALKER. BED IS LOW, LOCKED AND ALARMED.
[2021-06-25 09:13] VITALS: BP 147/79
--- NOTE | 2021-06-25 12:44 | NUR ---
NOTED DURING AM NURSING ASSESMENT TO HAVE ELEVATED PULSE AT 120-LAST -UPON REVIEW OF RECENT VS NOTED TO HAVE AN INCREASING PULSE SINCE ADMIT PARTICULARILY ON 8,12 13 AND 14. APICAL PULSE CHECKEDAND IS IRREGULAR WITH A RATE OF 108. PT DENIES CHEST PAIN/DISCOMFORT,SHORTNESS OF BREATH DOES REPORT FEELING "REALLY WEAK" WITH DIFFICULTY WALKING AND GETTING FROM SITTING TO STANDING. EASILY FATIGUED PER PT REPORT. DR BERRY NOTIFIED OF ABOVE DURING ROUNDS AND "O" RECEIVED FOR EKG WHICH WAS COMPLETED AT 1200-DR JENSEN PAGED WITH RESULTS-AWAITING RETURN CALL. REMAINS ON FALLS PRECAUTIONS,GAIT UNSTEADY, DYSPHORIC MOOD. DID HAVE SHOWER-APPETITE GOOD-REPORTS ANXIETY R/T DC AND NOT KNOWING WHAR WILL HAPPEN TO HER AND HER BELONGINGS ON DC. IS MORE COOPERATIVE WITH STAFF
[2021-06-25 14:20] LABS: URINE BILIRUBIN NEGATIVE (Negative); URINE BLOOD 1+ (Negative); URINE CLARITY CLEAR; URINE COLOR YELLOW; URINE GLUCOSE-RANDOM* 3+ (Negative); URINE KETONES NEGATIVE (Negative); URINE LEUKOCYTES 2+ (Negative); URINE NITRITE NEGATIVE (Negative); URINE PROTEIN (DIPSTICK) 2+ (Negative); URINE UROBILINOGEN 0.2 E.U./dl (0.2-1.0)
[2021-06-25 14:28] LABS: CASTS None Seen /LPF (None Seen); SQUAMOUS 0-3 Few /LPF (0-3)
[2021-06-25 14:29] LABS: BACTERIA 1-9 Few /HPF (None Seen); CRYSTALS None Seen /LPF (None Seen); URINE RBC 1-2 Rare /HPF (NONE SEEN); URINE WBC 6-15 Few /HPF (NONE SEEN); WBC CLUMPS Few (None Seen)
[2021-06-25 19:15] VITALS: BP 142/55
--- NOTE | 2021-06-26 03:54 | NUR ---
06-25-21 CARE TRANSFERRED 1899. LATER PT AAOX2, VSS, RR EVEN AND NONLABORED ON RA. PT DENIES PAIN AND SI/HI. PT BLD GLUCOSE 138. PT PRESENTS CALM AND COOPERATIVE. DURING MEDICATION ADMIN PT REPORTED HAVING PAIN EVERYWHERE AND SCORED 6 ON 0-10 SCALE. LATER UPON REASSESSMENT PT WAS RESTING IN BED WITH EYES CLOSED, PT BED IN LOWEST POSITION, LOCKED AND ALARM ON. PT WILL CONTINUE TO BE MONITOR PER [facility] PROTOCOL.
--- NOTE | 2021-06-26 07:27 | EKG ---
[address] [address] ELECTROCARDIOGRAM REPORT Name: JOSEFINA JERONIMO Room #: 52-A [facility] [place] .R.#: [id number] Admission: 06/08/21 Attend Phys: Corey Smith DO Discharge: Date of : 41 Report #: [id number] [facility] Test Date: 2021-06-25 Test Time: 11:27:11 Pat Name: JOSEFINA JERONIMO Department: Room: [facility] Gender: F Ciaio Counter Molder: RONNIE : 1945 Requested By: Cameron Matthews Order Number: [id number] MD: Sami López Measurements Intervals [place] Rate: 98 P: 61 [place]: 127 QRS: 71 QRSD: 135 T: -19 QT: 415 QTc: 530 Interpretive Statements Sinus rhythm Right bundle branch block No previous ECG available for comparison Electronically Signed On 06-26-2021 7:27:12 CDT by Sami López [email or web address] <ELECTRONICALLY SIGNED> By: Sami López MD, [facility] 06/26/21 0727 1127 [id number] Sami López MD, FACC /EPI
[2021-06-26 09:36] VITALS: BP 158/78
--- NOTE | 2021-06-26 10:33 | NUR ---
@10:33[facility] contacted Carole Mukund at [facility] ([phone]) for placement of pt. Carole stated the pt's DPOA, Helena, did attempt to contact her. She is currently waiting on a return phone call from Helena. Once she receives the call, Carole will contact the to move forward.
--- NOTE | 2021-06-26 19:27 | NUR ---
COOPERATIVE AND PLEASANT THROUGHOUT SHIFT-SAD FACIAL EXPRESSION.CONSTRICED AFFECT BUT WILL BRIGHTEN WHEN SPEAKING 1;1 WITH NURSING STAFF. REPORTS ANXIETY R/T DC. APPETITE GOOD. TAKING PO FLUIDS WELL. GAIT SLOW BUT STEADY WITH USE OF ROLLER WALKER
[2021-06-26 20:19] VITALS: BP 159/68
--- NOTE | 2021-06-27 06:14 | NUR ---
06-27-21 CARE TRANSFERRED 1899. LATER PT AAOX2, VSS, RR EVEN AND NONLABORED ON RA, PT DENIES PAIN AND SI/HI. PT PRESENTS CALM AND COOPERATIVE. DURING MEDICATION ADMIN PT HAD NO DIFFICULTIES. PT WILL CONTINUE TO BE MONITOR PER [facility] PROTOCOL.
--- NOTE | 2021-06-27 08:43 | NUR ---
Followup: eating 100% most meals of carb controlled diet. BG in poor control and on glargine, ss insulin, linagliptin. Has unstagable pressure ulcer to right heel, stable with eschar. Wound care continues to follow. Provider has indicated moderate protien calorie malnutrition: RD will defer. Will add catalina as extra supplementation. Low nutrition risk
[2021-06-27 09:35] VITALS: BP 176/84
[2021-06-27 09:44] VITALS: BP 176/84
--- NOTE | 2021-06-27 11:00 | NUR ---
1100 RESUMMED CARE FROM OVERNIGHT SHIFT THIS AM, PATIENT IN DAY ROOM SITTING QUIET. PATIENT ALERT ORIENTED TIMES 4 PATIENT DENIES SI/HI/AH/VH AT PRESENT. PATIENT CALM COOPERATIVE PARTICIPATES IN GROUPS, PATIENTS ABDOMEN SOFT BOWEL SOUNDS PRESENT. PATIENTS LUNGS CLEAR PATIENT MAY LEAVE TOMMOROW IF PLACEMENT GOES THROUGH. WILL CONTINUE TO MONITOR PATIENT FOR SAFETY AND BEHAVIORS.
--- NOTE | 2021-06-27 13:07 | NUR ---
@ 1030 ARAM called [facility] and spoke with Carole. Carole informed Helena had not reached out concerning the needed paper work. Carole informed she emailed the paperwork to Helena on 06/26/2021. Carole stated she is unable to admit the Pt without the signed paperwork. @1114 ARAM emailed Helena concerning the matter. ARAM informed that Carole had not recieved the paperwork for admission. ARAM encouraged Helena to reach out with any questions concerning the matter. @1256 Helena responded via email. In the email Helena states she printed out the documents and had some concerns. Helena stated she would not be able to send the documents back to Carole until Saturday. Helena requested a meeting with ARAM, Carole and Kristina Paula. @0273 ARAM responded informing SW will be out of office starting 06/28/2021. ARAM referred Helena to Cara Velez (providing Cara's phone number and email address). ARAM encouraged Helena to contact Carole directly with specific questions about [facility] and the contract. ARAM team will follow up.
[2021-06-27 19:23] VITALS: BP 120/55
[2021-06-27 20:20] VITALS: BP 120/55
--- NOTE | 2021-06-28 02:14 | NUR ---
PATIENT HAS BEEN IN ROOM ALL NIGHT RESTING IN BED. SHE DENIES PAIN. NO LIDODERM PATCH ON TO REMOVE D/T SHE REFUSED PATCH THIS MORNING. PATIENT DENIES SI/HI/AVH. SHE IS A/0X2-3. SHE HAS BEEN CALM AND COOPERATIVE TONIGHT AND VERY POLITE. SHE TOOK HER MEDS WHOLE WITHOUT INCIDENT. ACCUCHECK WAS 205 AT HS AND LISPRO 10U SQ GIVEN ALONG WITH HER LANTUS 40 UNITS SQ. PATIENT IS A STANDBY WHEN UP TO THE BATHROOM D/T HIGH FALL RISK. SHE FORGETS TO USE HER WALKER IN ROOM AT TIMES. NO COMPLAINTS. BED IN LOW POSITION AND BED ALARM IS ON. ROUTINE ROUNDS TO ASSESS SAFETY AND STATUS OF PATIENT.
--- NOTE | 2021-06-28 02:56 | NUR ---
PATIENT UPSET AND CAME TO NURSES STATION. SHE CANNOT SLEEP BECAUSE SHE IS AFRAID MALE PATIENT WILL REENTER HER ROOM HE DID EARLIER. SHE WAS MAD BECAUSE WE KEEP HER ROOM DOOR OPEN. EXPLAINED TO PATIENT THAT WE ARE TO KEEP ROOM DOORS OPEN SO WE CAN MAKE SURE EVERYONE IS OK AND WE CHECK ON THEM EVERY 11 MINUTES. SHE STATES SHE'S TOO SCARED TO SLEEP WITH DOOR OPEN D/T PATIENT WANDERING INTO HER ROOM AGAIN. PT ALSO REQUESTED COFFEE TO DRINK AND I TOLD HER THAT COULD NOT HAVE COFFEE TILL 0630 BUT I WOULD BE HAPPY TO GET HER SOME WATER. SHE REQUESTED ICE IN IT. PATIENT SAT IN A RECLINER IN DINING ROOM TO DRINK WATER. I NOTICED SHE DID NOT HAVE YELLOW SOCKS ON HER FEET BUT THEY WERE HANGING OVER HER WALKER. I SAID, YOUR FEET MUST BE COLD. SHE STATED THAT HER SOCKS WERE DIRTY AND SHE NEEDED NEW ONES. GOT PATIENT NEW SOCKS AND PUT THEM ON HER. PATIENT STILL NOT WANTING TO GO BACK TO BED D/T SCARED OF WANDERING PT. TOLD PATIENT THAT WHEN SHE GOES BACK TO HER ROOM TO SLEEP I WILL ALLOW THE DOOR TO BE CLOSED BUT THAT IT WILL BE OPENED EVERY 11 MINUTES SO WE CAN CHECK ON HER. PT OK WITH THIS AND THEN COMPLAINED THAT SHE CAN'T HAVE COFFEE NOW. PATIENT UP IN DINING ROOM WALKING WITHOUT WALKER.
[2021-06-28 09:29] VITALS: BP 172/66
[2021-06-28 14:14] LABS: CALCIUM 8.8 mg/dL (8.5-10.1); CREATININE 1.9 mg/dL (0.6-1.0)
--- NOTE | 2021-06-28 14:33 | NUR ---
PATIENT WAS UP, SITTING ON GERICHAIR IN DAYROOM WHEN CARE ASSUMED. PATIENT IS ALERT, AND ORIENTED X 3-4 ABLE TO VOICE NEED. PATIENT CAN BE FORGETFUL AT TIMES. PATIENT TOOK ALL MEDICATION WHOLE WITHOUT DIFFICULTY, SHE IS EATING MEALS, AND DRINKING FLUID WELL. PATIENT WANTED EYE DROP THAT IS SCHEDULED FOR 2100 AT 0900 HOURS. PATIENT NOTIFIED THAT SHE GOT THE MED LAST NIGHT ACCORDING TO THE MAR, AND SHE BECAME VERY ANGRY, AND IRRITABLE, YELLING AT THIS NURSE, CALLING ME NAMES. PATIENT REDIRECTED, AND NOTIFIED THAT VERBALLY ABUSING STAFF IS INAPPROPRIATE, AND NOT ACCEPTABLE. PATIENT DENIES SUICIDAL/HOMICIDAL IDEATION, FOR DEPRESSION, SHE STATES "I DON'T THINK I AM DEPRESSED", DENIES ANXIETY, SHE ALSO DENIES HAVING PHYSICAL PAIN, HAS DECLINED SCHEDULE TYLENOL X 2. PATIENT CAN BE EASILY AGGITATED, IRRITABLE, LOUD. SHE PARTICIPATES IN GROUP THERAPY. NO S&S OF HYPO/HYPERGLYCEMIA NOTED, INSULIN GIVEN PER SLIDIDNG SCALE ORDER. NO SIGN OF ACUTE DISTRESS NOTED AT THIS TIME, WILL CONTINUE TO REDIRECT, AND MONITOR FOR SAFETY.
--- NOTE | 2021-06-28 15:56 | NUR ---
Daughter had zoom meeting with Kristina from [facility] and Lolis from [facility]. All questions were answered and patient will discharge to [facility] on Saturday of this week. All parties had no other questions of us. Plan is to discharge patient Saturday to [facility].
--- NOTE | 2021-06-28 17:13 | HC ---
[facility] [place] [address] CONSULTATION Name: JOSEFIAN JERONIMO Room #: 526A-A ADM IN M.R.#: [id number] Admission: 06/08/21 Attend Phys: Corey Smith DO Discharge: Date of : 41 Report #: [id number] THIS REPORT FOR: cc: Jourdan Pulido MD, Neal A. MD Althoff,Jorden Dumont MD ~ DATE OF SERVICE: 06/13/2021 CHIEF COMPLAINT: Right heel ulceration. HISTORY OF PRESENT ILLNESS: This is a 75-year-old female patient whom I have seen during recent hospitalization at [facility]. She is admitted to the geriatric psychiatric unit for unspecified psychosis. She has a known right heel ulcer and some gluteal ulceration. I have been asked to see her with regard to wound care. The patient is awake. She does answer brief questions. She is somewhat unaware of her current circumstances. Denies any pain at this time. PAST MEDICAL HISTORY: Positive for history of type 2 diabetes mellitus, pressure ulcer to the right heel and dementia. MEDICATIONS: Include insulin, gabapentin, Jardiance, latanoprost, methocarbamol, Lidoderm patch, melatonin, fludrocortisone, [place], amlodipine, cholecalciferol, duloxetine, ferrous sulfate. ALLERGIES: PENICILLIN AND SULFA. FAMILY HISTORY: Unknown. REVIEW OF SYSTEMS: Not obtainable due to the patient's level of cooperation and alertness. PHYSICAL EXAMINATION: VITAL SIGNS: Include temperature 35.9, pulse 86, respiration of 16, blood pressure 166/76. GENERAL: This is a chronically ill-appearing female patient who has minimal distress. HEENT: Normocephalic. Nose and throat are clear. NECK: Supple. LUNGS: Diminished. HEART: Regular rhythm. ABDOMEN: Soft. EXTREMITIES: Examination of the lower extremities demonstrates an unstageable pressure ulcer of the right heel with dry stable eschar. It is not infected. Her pannus appears to be clear, buttocks appear to be clear at this time. [facility] [address] [place] [address] CONSULTATION Name: JOSEFINA JERONIMO Room #: 526A-A ADM IN M.R.#: [id number] Admission: 06/08/21 Attend Phys: Corey Smith DO Discharge: Date of : 41 Report #: [id number] CLINICAL IMPRESSION: 1. Unstageable pressure ulcer of the right heel. 2. Dementia with aggressive behaviors. 3. Type 2 diabetes mellitus. 4. Multiple falls and general debility. RECOMMENDATIONS: We will recommend topical Betadine paint to the right heel and otherwise be open to air, PRAFO boots when she is in bed or sitting in a chair and not ambulatory. Continue with medical management, nutritional support. I appreciate being asked to see her in consultation. <ELECTRONICALLY SIGNED> By: Jorden Mcintosh MD 06/28/21 1713 [id number] Jorden Mcintosh MD /shira
[2021-06-28 19:44] VITALS: BP 156/69
[2021-06-28 20:15] VITALS: BP 156/69
--- NOTE | 2021-06-29 02:09 | NUR ---
PATIENT HAS BEEN IN ROOM MOST OF NIGHT. SHE DID COME OUT TO DINING ROOM TO WATCH TV AND HAVE HS SNACK. HER BLOOD SUGAR WAS 273 TONIGHT AND SHE WAS GIVEN LISPRO 12U ALONG WITH HER LANTUS 40U SQ. PATIENT HAS BEEN POLITE, PLEASANT AND COOPERATIVE. SHE IS LOOKING FORWARD TO BEING DISCHARGED TODAY. PATIENT DENIES SI/HI/AVH. SHE IS A/0X4. SHE TOOK HER MEDS WHOLE WITH WATER. SHE DENIES PAIN. ROUTINE ROUNDS TO ASSESS SAFETY AND STATUS OF PATIENT.
[2021-06-29 09:24] VITALS: BP 154/61
--- NOTE | 2021-06-29 14:26 | NUR ---
RT Progress Note- Yaneth's presence in the milieu and recreation therapy has improved as has her compliance with room lockout. She initially engages in groups until other patients begin to frustrate her. She has very little tolerance for the cognition of other patient's on the unit. She appears to respond better to one to one engagement and enjoys conversations of intelligence. RT Team will continue to work with Yaneth until discharge.
[2021-06-29 15:15] VITALS: BP 141/62
--- NOTE | 2021-06-29 15:48 | NUR ---
Patient will discharge tomorrow at 11:00 to [facility]. Her apt. is all set up with the help of [facility]. [facility] will pick patient up. Conf# with [facility] is [id number]. Left message with Lolis Gore at [facility] about transport details.
--- NOTE | 2021-06-29 16:42 | NUR ---
Alert and orientated x 2-3. Denies SI/HI. Concerned about pending discharge to facility. Does not want to attend group, making negative comments toward group and peers in AM group. Refused to go to afternoon group stating that she wants to lay down d/t stomach discomfort after stating she did not have any pain and laughing with staff just prior to group. Continues to make negative comments about group. Breath sounds clear. Reg HR auscultated. Color pink with brisk capillary refill and palpable peripheral pulses. Independent with voiding. Active bowel sounds over soft, rounded abdomen. States she had BM 2 days ago. Ambulates with regular, steady gait with walker. Ulcer per R heel cleaned with NS and betadine applied.
[2021-06-29 19:49] VITALS: BP 163/73
[2021-06-29 19:50] VITALS: BP 163/73
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
[2021-06-30 09:16] VITALS: BP 141/70
[2021-06-30] MEDS ORDERED: LEVOFLOXACIN250 MG PO (09:38)
[2021-06-30] MEDS ORDERED: IRON325 PO (09:38)
[2021-06-30] MEDS ORDERED: LIPITOR40 MG PO (09:40)
[2021-06-30] MEDS ORDERED: NORVASC10 MG PO (09:40)
[2021-06-30] MEDS ORDERED: ADULT LOW DOSE81 MG PO (09:41)
[2021-06-30] MEDS ORDERED: NEURONTIN 300M300 M2 PO (09:42)
[2021-06-30] MEDS ORDERED: TYLENOL325 MG PO (09:42)
[2021-06-30] MEDS ORDERED: LEXAPRO 10 MG T10 MG PO (09:43)
[2021-06-30] MEDS ORDERED: NAMENDA 5 MG TAB5 M1 PO (09:43)
[2021-06-30] MEDS ORDERED: XALATAN2.5 ML OPHTHALMIC (09:44)
[2021-06-30] MEDS ORDERED: TRADJENTA5 MG PO (09:45)
[2021-06-30] MEDS ORDERED: LANTUS100 UNIT/M SUBQ (09:46)
[2021-06-30] MEDS ORDERED: VITAMIN D3125 MC1 PO (09:47)
--- NOTE | 2021-06-30 12:27 | NUR ---
Patient successfully discharged to [facility] via [facility]. Discharge documents faxed to [facility] - called to ensure documents were received. [facility] acknowledged receipt.
--- NOTE | 2021-06-30 12:30 | NUR ---
Alert and orientated to person, place. Unable to state time. Denies SI/HI. States she did not sleep at all last night. Denies pain and refuses lidocaine patch today. Very concerned with belongings. Breath sounds clear. Reg HR auscultated. Color pink with brisk capillary refill and palpable peripheral pulses. Yellow urine per toilet. Active bowel sounds over soft, rounded abdomen. States last BM was 3 days ago. Ulcer to R heel cleaned with NS and betadine applied. Ambulating with walker with regular, steady gait. Calm and compliant with meds. Spoke with Dr. Smith prior to discharge. Hyperglycemic over pas 24 hrs 178-311. Dr. Santos notified, states he will speak to Dr. Smith r/t discharge orders. Report called to [facility], spoke with Amanda Vaca. Also spoke with Helena HERRING via phone, agrees with transfer. Prior to discharge obtained home meds from pharmacy and security delivered valuables. Discharged at 1200 per WC per [facility].
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
== END 2021-06-30 12:00 | DRG 57 ==
LOC: SBH
PROVIDERS: Hospitalist; Internal Medicine; Nurse Practitioner Family; ADMIT Psychiatry & Neurology Psychiatry; ATTEND Psychiatry & Neurology Psychiatry
DX: G30.9 Alzheimer's disease, unspecified (principal); F02.81 Dementia in other diseases classified elsewhere, unspecified severity, with behavioral disturbance; F33.2 Major depressive disorder, recurrent severe without psychotic features; E44.0 Moderate protein-calorie malnutrition; L89.610 Pressure ulcer of right heel, unstageable; R29.6 Repeated falls; F41.1 Generalized anxiety disorder; I10 Essential (primary) hypertension; E78.5 Hyperlipidemia, unspecified; E11.42 Type 2 diabetes mellitus with diabetic polyneuropathy; M79.7 Fibromyalgia; G47.33 Obstructive sleep apnea (adult) (pediatric); M19.90 Unspecified osteoarthritis, unspecified site; Z60.2 Problems related to living alone; I12.9 Hypertensive chronic kidney disease with stage 1 through stage 4 chronic kidney disease, or unspecified chronic kidney disease; E11.22 Type 2 diabetes mellitus with diabetic chronic kidney disease; M47.819 Spondylosis without myelopathy or radiculopathy, site unspecified; J44.9 Chronic obstructive pulmonary disease, unspecified; Z90.711 Acquired absence of uterus with remaining cervical stump; Z79.899 Other long term (current) drug therapy; Z79.4 Long term (current) use of insulin; Z88.0 Allergy status to penicillin; Z88.2 Allergy status to sulfonamides; Z86.73 Personal history of transient ischemic attack (TIA), and cerebral infarction without residual deficits; Z86.711 Personal history of pulmonary embolism; Z82.0 Family history of epilepsy and other diseases of the nervous system; Z68.26 Body mass index [BMI] 26.0-26.9, adult
CPT/HCPCS: 10880